=== PATIENT | female | born 1975 | race Hispanic/Latino ===

== ENCOUNTER 2016-09-17 00:10 | Inpatient (IN) | payer SELFPAY ==
[2016-09-17 00:21] VITALS: O2SAT 98
--- NOTE | 2016-09-17 00:27 | C.PDOC ---
History Of Present Illness 41 year old female who presents to the ER as a transfer from [facility] for psychiatric admission; patient has suicidal ideation. Denies physical complaints at this time. Time Seen by Provider: 09/17/16 00:24 Chief Complaint (Nursing): Psychiatric Evaluation History Per: Patient History/Exam Limitations: no limitations Onset/Duration Of Symptoms: Days Current Symptoms Are (Timing): Still Present Suicide/Self Injury Attempted (Context): None Modifying Factor(s): None Associated Symptoms: Suicidal Thoughts. denies: Depression, Suicidal Plan Involuntary Hold By: None Recent travel outside of the [place]: No Past Medical History Reviewed: Historical Data, Nursing Documentation, Vital Signs Vital Signs: Last Vital Signs Temp 98.0 F 09/17/16 00:13 Pulse 69 09/17/16 00:13 Resp 18 09/17/16 00:13 BP 128/86 09/17/16 00:13 Pulse Ox 98 09/17/16 00:34 - Medical History PMH: Anxiety, Depression, Kidney Stones, Post Traumatic Stress Disorder Surgical History: No Surg Hx Family History: States: Unknown Family Hx - Social History Hx Alcohol Use: No Hx Substance Use: No - Immunization History Hx Tetanus Toxoid Vaccination: No Hx Influenza Vaccination: No Hx Pneumococcal Vaccination: No Review Of Systems Except As Marked, All Systems Reviewed And Found Negative. Constitutional: Negative for: Fever, Chills Gastrointestinal: Negative for: Nausea, Vomiting, Diarrhea Psych: Positive for: Suicidal ideation Physical Exam - Physical Exam Appears: Non-toxic, No Acute Distress Skin: Normal Color, Warm, Dry Head: Atraumatic, Normacephalic Eye(s): bilateral: Normal Inspection, EOMI Oral Mucosa: Moist Chest: Symmetrical, No Tenderness Cardiovascular: Rhythm Regular, No Murmur Respiratory: Other (No respiratory distress, speaking in complete sentences) Neurological/Psych: Oriented x3, Normal Speech, Normal Cognition ED Course And Treatment O2 Sat by Pulse Oximetry: 98 (Room air) Pulse Ox Interpretation: Normal Disposition Counseled Patient/Family Regarding: Diagnosis - Disposition Disposition: HOSPITALIZED Disposition Time: 00:33 Condition: STABLE - POA Present On Arrival: None - Clinical Impression Clinical Impression: Major depression - Scribe Statement The provider has reviewed the documentation as recorded by the Scribkolton Tam All medical record entries made by the Scribe were at my direction and personally dictated by me. I have reviewed the chart and agree that the record accurately reflects my personal performance of the history, physical exam, medical decision making, and the department course for this patient. I have also personally directed, reviewed, and agree with the discharge instructions and disposition. Decision To Admit - Pt Status Changed To: Hospital Disposition Of: Inpatient - Admit Certification Admit to Inpatient:: After my assessment, the patient will require hospitalization for at least two midnights. This is because of the severity of symptoms shown, intensity of services needed, and/or the medical risk in this patient being treated as an outpatient. - InPatient: Physician Admission Certification: I certify that this patient requires 2 or more midnights of care for the following reason:: SEE NOTE - . Bed Request Type: Psychiatry Admitting Physician: Negrito Marina Patient Diagnosis: Major depression
--- NOTE | 2016-09-17 01:53 | PCM.BM ---
<Buck Forbes - Last Filed: 09/17/16 01:51> Treatment Plan Problems - Problems identified on initial assessmt Depression Date Initiated: 09/17/16 Time Initiated: 01:00 Assessment reference: NA Status: Active Treatment assets and liabiliti Patient Assests: self-reliant, ADL independent Patient Liabilities: financial problems, poor support system, relationship conflicts - Milieu Protocol Maintain good personal hygiene: daily Encourage regular showers, every shift Remind patient to perform daily oral care Maintain personal safety: every shift Educate patient to report safety concerns to staff, every shift Monitor environment for contraband/sharps Medication safety: Monitor for expected outcome, potential side effects: every shift, Assess barriers to learning: every shift, Assess readiness for medication education: every shift <Estefanía Villareal - Last Filed: 09/18/16 11:12> Family Contact Family involvement: Famliy/SO not involved Family contact: Patient declines to allow family contact at present - Outside Agency Agency 1 Care involvment: Information-sharing Agency contact name: [facility] Agency contact number: - Goals for Treatment Patient goals for treatment: "I want to go home." Discharge/Continuing Care - Education Needs Education Needs: Patient Medication, Patient Coping Skills - Discharge Discharge Criteria: Tolerates medication w/o severe side effects, Free of Suicidal thoughts, Reduction of target symptoms Discharge to:: Home - Treatment Team Participation Discussed with Family/SO: No Was Patient/Family/SO present at Treatment Team Meeting: Yes <Galdino Blackwell - Last Filed: 09/18/16 11:15> - Diagnosis (1) Bipolar II disorder, most recent episode major depressive Status: Acute Interventions: 09/18/16 11:16 Attend groups Take meds <Caterina Orr - Last Filed: 09/19/16 08:56> Treatment assets and liabiliti Patient Assests: cooperative, ADL independent, physically healthy, cognitively intact
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
--- NOTE | 2016-09-18 11:11 | PCM.PYCHPN ---
Psychiatric Progress Note - Psychiatric Progress Note Patient seen today, length of contact: 17 min Patient Chief Complaint: I am feeling better, and I want to leave.' Problems Identified/Issues Discussed: Patient seen and evaluated, chart reviewed and discussed with the nurse. Patient reports improvement in her mood and reports improvement in the depressive symptoms. She denies any auditory or visual hallucinations. However, she remained somewhat irritable and agitated. She reports improvement in her anxiety and denies any SI. She is taking medication and denied any side effects. Supportive therapy and psychoeducation were given. Medication Change: No Medical Record Reviewed: Yes Mental Status Examination - Cognitive Function Orientation: Person, Place, Situation, Time Memory: Intact Attention: WNL Concentration: Poor Association: WNL Fund of Knowledge: Poor - Mood Mood: Depressed, Anxious - Affect Affect: Depressed, Other (labile) - Speech Speech: Soft - Formal Thought Process Formal Thought Process: No Impairment - Suicidal Ideation Suicidal Ideation: No - Homicidal Ideation Homicidal Ideation: No Goal/Treatment Plan - Goal/Treatment Plan Need for Continued Stay: Discharge may exacerbated symptoms, Severe functional impairment Progress Toward Problem(s) and Goals/Treatment Plan: Bipolar II disorder major depressive episode CBT Psychoeducation Supportive therapy, group therapy, individual therapy Paxil 10 mg PO Daily Atarax 25 mg PO Q6 hr prn Trazodone 50 mg by mouth daily at bedtime Celiac Disease Monitor s/s Endometriosis Monitor s/s - Smoking Cessation Smoking Cessation Initiated: No
[2016-09-19 09:56] VITALS: BP 115/83; PULSE 78; RESP 20; TEMP 98.1
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
== END 2016-09-19 12:19 | disposition home or self-care (01) | DRG 885 ==
LOC: C.ER 00:10 → C.5E 00:34
PROC: GZHZZZZ Group Psychotherapy (ICD-10-PCS; principal; 2016-09-17)
PROC: GZ58ZZZ Individual Psychotherapy, Cognitive-Behavioral (ICD-10-PCS; 2016-09-17)
PROC: GZ56ZZZ Individual Psychotherapy, Supportive (ICD-10-PCS; 2016-09-17)
DX: F31.30 Bipolar disorder, current episode depressed, mild or moderate severity, unspecified (principal); R45.851 Suicidal ideations; F43.10 Post-traumatic stress disorder, unspecified; F41.9 Anxiety disorder, unspecified; K90.0 Celiac disease; N80.9 Endometriosis, unspecified